=== PATIENT | male | born 1995 | race Caucasian/White ===

== ENCOUNTER 2017-04-21 06:17 | Day surgery (SDC) | payer MEDICAID, OTHER ==
[~2017-04-21] VITALS: Ht 175.3 cm; Wt 63.0 kg
[2017-04-21] MEDS ORDERED: GLYCOPYRROLATE 0.2 MG/ML VIAL IV ONE (07:55)
[2017-04-21] MEDS ORDERED: SEVOFLURANE 250 ML BTL INH ONE (07:55)
[2017-04-21] MEDS ORDERED: ROCURONIUM 50 MG/5 ML VIAL IV ONE (07:55)
[2017-04-21] MEDS ORDERED: ONDANSETRON 4 MG/2 ML VIAL IVP ONE (07:55)
[2017-04-21] MEDS ORDERED: NEOSTIGMINE 1:1000 10 MG/10 ML VIAL IM ONE (07:55)
[2017-04-21] MEDS ORDERED: DEXAMETHASONE 4 MG/ML VIAL IVP ONE (07:55)
[2017-04-21] MEDS ORDERED: SUCCINYLCHOLINE CHLORIDE 200 MG/10 ML VIAL IV ONE (07:55)
[2017-04-21] MEDS ORDERED: PROPOFOL 200 MG/20 ML VIAL IV ONE (07:55)
[2017-04-21] MEDS ORDERED: OMEP20TC12 PO (08:02)
[2017-04-21] MEDS ORDERED: PRO5 PO (08:02)
[2017-04-21] MEDS ORDERED: MIDAZOLAM 2 MG/2 ML VIAL ONE (08:18)
[2017-04-21] MEDS ORDERED: fentaNYL 0.05 MG/ML VIAL ONE (08:18)
[2017-04-21] MEDS ORDERED: MEPERIDINE 50 MG/ML SYR ONE (08:19)
[2017-04-21] MEDS ORDERED: PHENYLEPHRINE 1% 15 ML BTL NS ONE (08:29)
[2017-04-21] MEDS ORDERED: LEVOFLOXACIN 500 MG/D5W PREMIX 100 ML IV ONE (08:49)
[2017-04-21] MEDS ORDERED: HYDROmorphone 1 MG/ML AMP IVP PRN (09:00)
[2017-04-21] MEDS ORDERED: diphenhydrAMINE 50 MG/ML VIAL IVP PRN (09:00)
[2017-04-21] MEDS ORDERED: ONDANSETRON 4 MG/2 ML VIAL IVP PRN (09:00)
[2017-04-21] MEDS ORDERED: MEPERIDINE 25 MG/ML SYR IVP PRN (09:00)
[2017-04-21] MEDS ORDERED: LACTATED RINGERS 1,000 ML IV SCH (09:00)
[2017-04-21] MEDS ORDERED: DEXT 5% / NACL 0.2% 500 ML IV SCH (09:19)
[2017-04-21] MEDS ORDERED: ACETAMIN/CODEINE 120/12MG-5ML 5 ML UDC PO PRN (09:20)
[2017-04-21] MEDS ORDERED: PROMETHAZINE 25 MG SUPP RC PRN (09:20)
[2017-04-21] MEDS ORDERED: guaiFENesin DM 200/20 MG-10 ML 10 ML UDC PO PRN (09:20)
--- NOTE | 2017-04-21 09:28 | NUR ---
POST-OP RECOVERY COOL AEROSOL TO MASK SET UP AT 28%/7 LPM
[2017-04-21] MEDS ORDERED: KETOROLAC 30 MG/ML VIAL ONE (09:51)
[2017-04-21] MEDS ORDERED: KETOROLAC 30 MG/ML VIAL IVP SCH (10:00)
== END 2017-04-21 11:20 | disposition home or self-care (01) ==
LOC: MOR 06:17 → MMU 06:36 → MOR 11:20
PROVIDERS: ATTEND Otolaryngology
DX: C11.9 Malignant neoplasm of nasopharynx, unspecified (principal); J35.2 Hypertrophy of adenoids; F17.210 Nicotine dependence, cigarettes, uncomplicated; Z83.3 Family history of diabetes mellitus; Z82.49 Family history of ischemic heart disease and other diseases of the circulatory system; Z88.1 Allergy status to other antibiotic agents; Z88.0 Allergy status to penicillin; Z88.8 Allergy status to other drugs, medicaments and biological substances
CPT/HCPCS: 88304; 93005; J0330; J1100; J1885; J1956; J2175; J2250; J2405; J2704; J2710; J3010; J3490; J7120